=== PATIENT | male | born 1975 | race Caucasian/White ===

== ENCOUNTER 2022-11-01 10:12 | Emergency (ER) | payer OTHER ==
[2022-11-01] MEDS ORDERED: HYDROmorphone 1 MG/ML Syringe IVPUSH ONE (10:30)
[2022-11-01] MEDS ORDERED: Diphtheria,Pertussis(Acell),Tetanus Vaccine 0.5 ML Syringe IM ONE (11:20)
[2022-11-01] MEDS ORDERED: Tranexamic Acid 1,000 MG in Sodium Chloride 0.9% 500 ML IV ONE (11:25)
[2022-11-01] MEDS ORDERED: Iopamidol 755 Mg/ML 100 ML Bottle IV ONE (12:19)
[2022-11-01] MEDS ORDERED: Sodium Chloride 0.9% 10 ML Syringe FLUSH ONE (12:19)
[2022-11-01] MEDS ORDERED: Sodium Chloride 0.9% 75 ML IV ONE (12:19)
[2022-11-01] MEDS ORDERED: ceFAZolin 1 GM in Premix Bag 1 BAG IV ONE ×2 (13:16→13:45)
[2022-11-01] MEDS ORDERED: HYDROmorphone 0.5 MG/0.5 ML Syringe IVPUSH ONE (13:51)
[2022-11-01] MEDS ORDERED: Bacitracin Oint 1 GM U/D Packet TOP ONE (14:06)
[2022-11-01] MEDS ORDERED: Lidocaine 1% with EPINEPHrine 1:100,000 50 ML MDV SUBCUT STA (14:06)
== END 2022-11-01 15:14 | disposition home or self-care (01) ==
LOC: JP.ED 10:12
DX: S82.51XB Displaced fracture of medial malleolus of right tibia, initial encounter for open fracture type I or II (principal); Z86.16 Personal history of COVID-19; Z23 Encounter for immunization; W22.09XA Striking against other stationary object, initial encounter
CPT/HCPCS: 12002; 29515; 73610; 73701; 90471; 90715; 96365; 96366; 96368; 96375; 96376; 99284; J0690; J1170; J3490; J7040; Q9967